=== PATIENT | male | born 1980 | race Two or more races ===

== ENCOUNTER 2016-10-29 10:06 | Emergency (ER) | payer SELFPAY ==
[~2016-10-29 10:06] MED LIST: Aspirin PO; OMEP20TA63 PO; PANT40TA3 PO
--- NOTE | 2016-10-29 10:47 | PHYS DOC ---
Past Medical History Past Medical History: CAD Past Surgical History: Appendectomy Alcohol Use: Rarely Drug Use: None Adult General Chief Complaint Chief Complaint: ABDOMINAL PAIN HPI HPI Patient is a 35 year old male presents to the emergency department with a history of nonproductive cough for the last few days. Patient states he felt a pop at the umbilicus. Patient states he has a hard area and tenderness. States he has had chills, unsure of fever. Patient denies nausea and vomiting, denies diarrhea and constipation. Review of Systems Review of Systems Constitutional: Denies fever or chills [] Eyes: Denies change in visual acuity, redness, or eye pain [] HENT: Denies nasal congestion or sore throat [] Respiratory: Denies cough or shortness of breath [] Cardiovascular: No additional information not addressed in HPI [] GI: umbilicus pain, denies nausea, vomiting, bloody stools or diarrhea [] : Denies dysuria or hematuria [] Musculoskeletal: Denies back pain or joint pain [] Integument: Denies rash or skin lesions [] Neurologic: Denies headache, focal weakness or sensory changes [] Endocrine: Denies polyuria or polydipsia [] Current Medications Current Medications Current Medications Medications (Trade) Dose Ordered Sig/Katherin Start Time Stop Time Status Last Admin Dose Admin Fentanyl Citrate (Fentanyl 2ml Vial) 50 mcg PRN Q15MIN PRN 10/29/16 11:30 10/30/16 11:29 10/29/16 11:56 50 MCG Info (Do NOT chart on this entry -- for MONITORING) 1 each PRN DAILY PRN 10/29/16 11:15 10/31/16 11:14 Iohexol (Omnipaque 240 Mg/ml) 50 ml 1X ONCE 10/29/16 11:15 10/29/16 11:16 DC 10/29/16 11:15 50 ML Iohexol (Omnipaque 300 Mg/ml) 75 ml 1X ONCE 10/29/16 11:15 10/29/16 11:16 DC 10/29/16 12:32 75 ML Ondansetron HCl (Zofran) 4 mg 1X ONCE 10/29/16 11:30 10/29/16 11:31 DC 10/29/16 11:30 4 MG Allergies Allergies Allergies Coded Allergies Type Severity Reaction Last Updated Verified No Known Drug Allergies 04/19/15 No Physical Exam Physical Exam Constitutional: Well developed, well nourished, no acute distress, non-toxic appearance. [] HENT: Normocephalic, atraumatic, bilateral external ears normal, oropharynx moist, no oral exudates, nose normal. [] Eyes: PERRLA, EOMI, conjunctiva normal, no discharge. [] Neck: Normal range of motion, no tenderness, supple, no stridor. [] Cardiovascular:Heart rate regular rhythm, no murmur [] Lungs & Thorax: Bilateral breath sounds clear to auscultation [] Abdomen: Bowel sounds hypoactive, soft, umbilicus tenderness, knot noted to the 12' O clock area, no masses, no pulsatile masses. [] Skin: Warm, dry, no erythema, no rash. [] Back: No tenderness Extremities: No tenderness, no cyanosis, no clubbing, ROM intact, no edema. [] Neurologic: Alert and oriented X 3, normal motor function, normal sensory function, no focal deficits noted. [] Psychologic: Affect normal, judgement normal, mood normal. [] Current Patient Data Vital Signs Vital Signs Date Time Temp Pulse Resp B/P (MAP) Pulse Ox O2 Delivery O2 Flow Rate FiO2 10/29/16 12:55 88 16 145/78 (100) 95 Room Air 10/29/16 10:25 98.2 98.2 Lab Values Laboratory Tests Test 10/29/16 10:45 White Blood Count 13.2 x10^3/uL (4.0-11.0) H Red Blood Count 4.59 x10^6/uL (4.30-5.70) Hemoglobin 14.0 g/dL (13.0-17.5) Hematocrit 41.4 % (39.0-53.0) Mean Corpuscular Volume 90 fL (79-100) Mean Corpuscular Hemoglobin 31 pg (25-35) Mean Corpuscular Hemoglobin Concent 34 g/dL (31-37) Red Cell Distribution Width 14.0 % (11.5-14.5) Platelet Count 286 x10^3/uL (140-400) Neutrophils (%) (Auto) 76 % (31-73) H Lymphocytes (%) (Auto) 16 % (24-48) L Monocytes (%) (Auto) 7 % (0-9) Eosinophils (%) (Auto) 2 % (0-3) Basophils (%) (Auto) 0 % (0-3) Neutrophils # (Auto) 10.0 x10^3uL (1.8-7.7) H Lymphocytes # (Auto) 2.0 x10^3/uL (1.0-4.8) Monocytes # (Auto) 0.9 x10^3/uL (0.0-1.1) Eosinophils # (Auto) 0.2 x10^3/uL (0.0-0.7) Basophils # (Auto) 0.1 x10^3/uL (0.0-0.2) Sodium Level 138 mmol/L (136-145) Potassium Level 4.2 mmol/L (3.5-5.1) Chloride Level 100 mmol/L (98-107) Carbon Dioxide Level 31 mmol/L (21-32) Anion Gap 7 (6-14) Blood Urea Nitrogen 12 mg/dL (8-26) Creatinine 0.8 mg/dL (0.7-1.3) Estimated GFR (Cockcroft-Gault) 111.3 BUN/Creatinine Ratio 15 (6-20) Glucose Level 128 mg/dL (70-99) H Calcium Level 8.9 mg/dL (8.5-10.1) Total Bilirubin 0.4 mg/dL (0.2-1.0) Aspartate Amino Transferase (AST) 24 U/L (15-37) Alanine Aminotransferase (ALT) 36 U/L (16-63) Alkaline Phosphatase 118 U/L (46-116) H Total Protein 8.1 g/dL (6.4-8.2) Albumin 3.0 g/dL (3.4-5.0) L Albumin/Globulin Ratio 0.6 (1.0-1.7) L Laboratory Tests 10/29/16 10:45 Laboratory Tests 10/29/16 10:45 EKG EKG [] Radiology/Procedures Radiology/Procedures [][facility] [address] [place], [place] [id number] IMAGING REPORT Signed PATIENT: BONITA NOVA ACCOUNT: [id number] : 1980 LOCATION: ER AGE: 35 SEX: M EXAM STATUS: REG ER ORD. PHYSICIAN: JORGITO PRICE APRN REASON: cough and congestion PROCEDURE: CHEST PA & LATERAL ADDENDUM Addendum: Note is made of left retrocardiac opacity which is greater than expected for atelectasis. This is also likely due to pneumonic infiltrate. Follow-up to confirm complete resolution. DICTATED AND SIGNED BY: ANNETTE BOCANEGRA MD DATE: 10/29/16 1324 CC: JORGITO PRICE APRN; NO PCP ~ EXAM: Chest, single view. HISTORY: Congestion. COMPARISON: 05/08/2016. FINDINGS: A frontal view of the chest is obtained. There is bilateral perihilar and right suprahilar interstitial opacity. There is no consolidation, effusion or pneumothorax. The heart is normal in size. IMPRESSION: Bilateral perihilar and right suprahilar opacity suggesting interstitial infiltrate. DICTATED and SIGNED BY: ANNETTE BOCANEGRA MD DATE: 10/29/16 1101 CC: JORGITO PRICE APRN; NO PCP ~ [facility] [address] [place] [address] IMAGING REPORT Signed PATIENT: BONITA NOVA ACCOUNT: [id number] : 1980 LOCATION: ER AGE: 35 SEX: M EXAM STATUS: REG ER ORD. PHYSICIAN: JORGITO PRICE APRN REASON: knot at the umbilicus PROCEDURE: CT ABD PELV W/ORAL&IV CONTRAST EXAM: Abdomen and pelvis CT with intravenous contrast. HISTORY: Umbilical lump. TECHNIQUE: Computed tomographic images of the abdomen and pelvis were obtained following the administration of 75 cc Omnipaque 300 intravenous contrast. Multiplanar reformatting was performed. COMPARISON: 03/17/2010. FINDINGS: Evaluation of the lower thorax demonstrates a partially consolidated left lower lobe infiltrate containing air bronchograms. There is no effusion or pneumothorax. The heart is normal in size. There is hepatomegaly and hepatic steatosis. No focal hepatic lesion is seen. The gallbladder, pancreas, spleen, adrenal glands and kidneys are unremarkable. The appendix is surgically absent. No abnormally thickened or dilated loop of bowel is seen. The bladder is unremarkable. There is no pathologically enlarged lymph node. There is a fat-containing umbilical hernia. The hernia sac measures 6.0 cm and the hernia defect measures 1.5 cm. There is stranding within the herniated fat and adjacent ventral intraperitoneal fat likely due to ischemia/infarction. There is no suspicious osseous lesion. IMPRESSION: 1. Small fat-containing umbilical hernia measuring 6.0 cm in maximum dimension and extending to a defect measuring 1.5 cm. There is stranding within the herniated fat and adjacent intraperitoneal fat likely due to component of fat ischemia/infarction. 2. Hepatomegaly and hepatic steatosis. 3. Left lower lobe consolidated pneumonia. Follow-up to confirm complete resolution and exclude an underlying lesion. PQRS Compliance Statement: One or more of the following individualized dose reduction techniques were utilized for this examination: 1. Automated exposure control 2. Adjustment of the mA and/or kV according to patient size 3. Use of iterative reconstruction technique DICTATED and SIGNED BY: ANNETTE BOCANEGRA MD DATE: 10/29/16 6219 CC: JORGITO PRICE APRN; NO PCP ~ Course & Med Decision Making Course & Med Decision Making Pertinent Labs and Imaging studies reviewed. (See chart for details) CT scan of the abdomen and pelvis shows an incarcerated/ischemic that hernia. Also shows left lower lobe pneumonia. Patient will be placed on antibiotics for pneumonia, he'll be provided with pain medication for the hernia. He'll be provided with the surgeon to follow-up with within the next week. Patient was provided with signs and symptoms to return back to emergency department. Patient was also instructed pain medication will cause drowsiness do not take any be alert and oriented. Patient will be discharged home in stable condition. [] Dragon Disclaimer Dragon Disclaimer This electronic medical record was generated, in whole or in part, using a voice recognition dictation system. Departure Departure Impression: Primary Impression: Pneumonia Additional Impression: Umbilical hernia Disposition: 01 HOME, SELF-CARE Condition: STABLE Referrals: NO PCP (PCP) BETO DIAS MD Patient Instructions: Hernia, [id number], Pneumonia, Adult, [id number] Additional Instructions: Activity as tolerated. Splint the abdomen when your coughing. Antibiotics as prescribed. Pain medication as prescribed this medication will cause drowsiness do not take if may be alert and oriented. Drink plenty of fluids. Tylenol or ibuprofen for fever chills or generalized body aches and discomfort. You may take cough medication [id number] to help with the cough. Follow-up with a surgeon within the week. Return back to emergency prior signs symptoms of become worse. Scripts Hydrocodone/Apap 5-325 (NORCO 5-325 TABLET) 1 Each Tablet 1 TAB PO PRN Q6HRS Y for PAIN, #15 TAB 0 Refills Prov: JORGITO PRICE APRN 10/29/16 Azithromycin (ZITHROMAX) 250 Mg Tablet 250 MG PO DAILY for ANTI-BIOTIC, #6 TAB 0 Refills Take 2 tablets today and then 1 tablet daily until gone. Prov: JORGITO PRICE APRN 10/29/16 Problem Qualifiers JORGITO PRICE APRN October 29, 2016 10:47
[2016-10-29 11:03] LABS: BASO # 0.1 x10^3/uL (0.0-0.2); BASO % 0 % (0-3); EOS % 2 % (0-3); HEMATOCRIT 41.4 % (39.0-53.0); LYMPH % 16 % (24-48); MEAN CORPUSCULAR HEMOGLOBIN 31 pg (25-35); MEAN CORPUSCULAR HGB CONC 34 g/dL (31-37); MEAN CORPUSCULAR VOLUME 90 fL (79-100); MONO % 7 % (0-9); NEUT % 76 % (31-73); PLATELET COUNT 286 x10^3/uL (140-400); RED BLOOD COUNT 4.59 x10^6/uL (4.30-5.70); WHITE BLOOD COUNT 13.2 x10^3/uL (4.0-11.0)
--- NOTE | 2016-10-29 11:05 | RAD ---
EXAM: Chest, single view. HISTORY: Congestion. COMPARISON: 05/08/2016. FINDINGS: A frontal view of the chest is obtained. There is bilateral perihilar and right suprahilar interstitial opacity. There is no consolidation, effusion or pneumothorax. The heart is normal in size. IMPRESSION: Bilateral perihilar and right suprahilar opacity suggesting interstitial infiltrate.
[2016-10-29 11:09] LABS: CALCIUM 8.9 mg/dL (8.5-10.1); CREATININE 0.8 mg/dL (0.7-1.3); GFR 111.3; POTASSIUM 4.2 mmol/L (3.5-5.1)
[2016-10-29] MEDS ORDERED: IOHEXOL 240 MG/ML 50ML VIAL. PO ONE (11:15)
[2016-10-29] MEDS ORDERED: CONTRAST GIVEN MC PRN (11:15)
[2016-10-29] MEDS ORDERED: IOHEXOL 300 MG/ML 75 ML VIAL IV ONE (11:15)
[2016-10-29 11:16] LABS: ALBUMIN/GLOBULIN RATIO 0.6 (1.0-1.7); TOTAL BILIRUBIN 0.4 mg/dL (0.2-1.0); TOTAL PROTEIN 8.1 g/dL (6.4-8.2)
[2016-10-29] MEDS ORDERED: fentaNYL PF VIAL 100 MCG/2 ML VIAL IV PRN (11:30)
[2016-10-29] MEDS ORDERED: ONDANSETRON PF 4 MG/2 ML VIAL. IV ONE (11:30)
--- NOTE | 2016-10-29 13:26 | RAD ---
EXAM: Abdomen and pelvis CT with intravenous contrast. HISTORY: Umbilical lump. TECHNIQUE: Computed tomographic images of the abdomen and pelvis were obtained following the administration of 75 cc Omnipaque 300 intravenous contrast. Multiplanar reformatting was performed. COMPARISON: 03/17/2010. FINDINGS: Evaluation of the lower thorax demonstrates a partially consolidated left lower lobe infiltrate containing air bronchograms. There is no effusion or pneumothorax. The heart is normal in size. There is hepatomegaly and hepatic steatosis. No focal hepatic lesion is seen. The gallbladder, pancreas, spleen, adrenal glands and kidneys are unremarkable. The appendix is surgically absent. No abnormally thickened or dilated loop of bowel is seen. The bladder is unremarkable. There is no pathologically enlarged lymph node. There is a fat-containing umbilical hernia. The hernia sac measures 6.0 cm and the hernia defect measures 1.5 cm. There is stranding within the herniated fat and adjacent ventral intraperitoneal fat likely due to ischemia/infarction. There is no suspicious osseous lesion. IMPRESSION: 1. Small fat-containing umbilical hernia measuring 6.0 cm in maximum dimension and extending to a defect measuring 1.5 cm. There is stranding within the herniated fat and adjacent intraperitoneal fat likely due to component of fat ischemia/infarction. 2. Hepatomegaly and hepatic steatosis. 3. Left lower lobe consolidated pneumonia. Follow-up to confirm complete resolution and exclude an underlying lesion. PQRS Compliance Statement: One or more of the following individualized dose reduction techniques were utilized for this examination: 1. Automated exposure control 2. Adjustment of the mA and/or kV according to patient size 3. Use of iterative reconstruction technique
[2016-10-29 13:55] VITALS: BP 137/67
[2016-10-29] MEDS ORDERED: AZIT250T PO (13:57)
[2016-10-29] MEDS ORDERED: HYDR-971 PO (13:57)
== END 2016-10-29 14:05 | disposition home or self-care (01) ==
LOC: ER 10:06
DX: J18.9 Pneumonia, unspecified organism (principal); K42.9 Umbilical hernia without obstruction or gangrene; I25.10 Atherosclerotic heart disease of native coronary artery without angina pectoris; Z90.49 Acquired absence of other specified parts of digestive tract
CPT/HCPCS: 36415; 71020; 74177; 80053; 85027; 96374; 96375; 99285; J2405; J3010; Q9966; Q9967

== ENCOUNTER 2017-07-28 13:25 | Emergency (ER) | payer SELFPAY ==
[2017-07-28] MEDS: HYDROcodone/APAP 5/325MG 1 TAB TABLET PO ×2 (13:53)
[2017-07-28] MEDS: NAPROXEN 500 MG TABLET PO ×2 (13:53)
[2017-07-28] MEDS: MORPHINE SULFATE 10 MG/ML VIAL. IM ×2 (15:04)
[2017-07-28] MEDS ORDERED: MORPHINE SULFATE 10 MG/ML VIAL. IM ×2 (15:30)
== END 2017-07-28 15:23 | disposition home or self-care (01) ==
LOC: ER 13:25
DX: S83.92XA Sprain of unspecified site of left knee, initial encounter (principal); I25.10 Atherosclerotic heart disease of native coronary artery without angina pectoris; W00.0XXA Fall on same level due to ice and snow, initial encounter; Y93.89 Activity, other specified; Y92.89 Other specified places as the place of occurrence of the external cause; Y99.8 Other external cause status
CPT/HCPCS: 73562; 96372; 99284-25; J2270

== ENCOUNTER 2018-07-19 13:03 | Emergency (ER) | payer SELFPAY ==
[~2018-07-19] VITALS: Ht 165.1 cm; Wt 172.4 kg
[~2018-07-19 13:03] MED LIST changes: +AZIT250T PO; +HYDR-3164 PO
[2018-07-19 13:20] VITALS: BP 143/67
[2018-07-19] MEDS ORDERED: DEXAMETHASONE SOD PHOS 20 MG/5 ML VIAL. IM ONE (13:45)
[2018-07-19] MEDS ORDERED: methylPREDNISolone SOD SUCC PF 125 MG/2 ML VIAL. IV ONE (13:45)
[2018-07-19] MEDS ORDERED: PRED50TA PO (14:11)
[2018-07-19] MEDS ORDERED: AMOX875T PO (14:11)
--- NOTE | 2018-07-19 14:11 | PHYS DOC ---
Past Medical History Past Medical History: CAD Additional Past Medical Histor: Morbid Obesity (JAN RIGGS APRN) Past Surgical History: Appendectomy (JAN RIGGS APRN) Alcohol Use: Rarely Drug Use: None (JAN RIGGS APRN) Adult General Chief Complaint Chief Complaint: SORE THROAT HPI HPI Patient is a 37 year old male with history of coronary artery disease presenting today complaining of sore throat for one week. Patient denies any fever. Patient denies any difficulty swallowing though he states it's painful. (JAN RIGGS APRN) Review of Systems Review of Systems Constitutional: Denies fever or chills [] Eyes: Denies change in visual acuity, redness, or eye pain [] HENT: Reports sore throat. Denies nasal congestion Respiratory: Denies cough or shortness of breath [] Cardiovascular: No additional information not addressed in HPI [] GI: Denies abdominal pain, nausea, vomiting, bloody stools or diarrhea [] : Denies dysuria or hematuria [] Musculoskeletal: Denies back pain or joint pain [] Integument: Denies rash or skin lesions [] Neurologic: Denies headache, focal weakness or sensory changes [] All other systems were reviewed and found to be within normal limits, except as documented in this note. (JAN RIGGS APRN) Current Medications Current Medications Current Medications Medications (Trade) Dose Ordered Sig/Katherin Start Time Stop Time Status Last Admin Dose Admin Dexamethasone Sodium Phosphate (Decadron) 10 mg 1X ONCE 07/19/18 13:45 07/19/18 13:49 DC 07/19/18 13:45 10 MG Methylprednisolone Sodium Succinate (SOLU-Medrol 125MG VIAL) 125 mg 1X ONCE 07/19/18 13:45 07/19/18 13:46 DC (AZUCENA MELENDEZ MD) Allergies Allergies Allergies Coded Allergies Type Severity Reaction Last Updated Verified No Known Drug Allergies 04/19/15 No (AZUCENA MELENDEZ MD) Physical Exam Physical Exam Constitutional: Well developed, well nourished, no acute distress, non-toxic appearance. [] HENT: Normocephalic, atraumatic, bilateral external ears normal, oropharynx moist, no oral exudates, nose normal. [] +3 tonsils with mild erythema no exudate, midline uvula. +2 anterior cervical adenopathy Eyes: PERRLA, EOMI, conjunctiva normal, no discharge. [] Neck: Normal range of motion, no tenderness, supple, no stridor. [] Cardiovascular:Heart rate regular rhythm, no murmur [] Lungs & Thorax: Bilateral breath sounds clear to auscultation [] Abdomen: Bowel sounds normal, soft, no tenderness, no masses, no pulsatile masses. [] Skin: Warm, dry, no erythema, no rash. [] Back: No tenderness, no CVA tenderness. [] Extremities: No tenderness, no cyanosis, no clubbing, ROM intact, no edema. [] Neurologic: Alert and oriented X 3, normal motor function, normal sensory function, no focal deficits noted. [] Psychologic: Affect normal, judgement normal, mood normal. [] (JAN RIGGS APRN) Current Patient Data Vital Signs Vital Signs Date Time Temp Pulse Resp B/P (MAP) Pulse Ox O2 Delivery O2 Flow Rate FiO2 07/19/18 13:20 98.2 90 18 143/67 (92) 97 Room Air 98.2 (AZUCENA MELENDEZ MD) Lab Values Laboratory Tests Test 07/19/18 13:18 Group A Streptococcus Rapid Positive (NEGATIVE) (AZUCENA MELENDEZ MD) EKG EKG [] (JAN RIGGS APRN) Radiology/Procedures Radiology/Procedures [] (JAN RIGGS APRN) Course & Med Decision Making Course & Med Decision Making Pertinent Labs and Imaging studies reviewed. (See chart for details) This is a 37-year-old male patient presenting to the ED today with sore throat for one week. Positive rapid strep. Patient has +3 tonsils. Was given Decadron IM in the ED. Currently swallowing with no difficulties. Discharged with amoxicillin for 10 days and prednisone. Saltwater gargles recommended. Instructed to return to the ED at any point symptoms worsen. Follow-up with his own PCP in one week (JAN RIGGS APRN) Course & Med Decision Making Staff Physician Addendum: I was working in the ER during the course of this patient's visit. I was available for consultation as needed, but I was not directly involved in the care of this patient. (AZUCENA MELENDEZ MD) Dragon Disclaimer Dragon Disclaimer This electronic medical record was generated, in whole or in part, using a voice recognition dictation system. (JAN RIGGS APRN) Departure Departure Impression: Primary Impression: Acute streptococcal pharyngitis Disposition: 01 HOME, SELF-CARE Condition: STABLE Referrals: NO PCP (PCP) Follow up with your doctor in 1 week Patient Instructions: Strep Infections Additional Instructions: You were evaluated in the emergency room and noted to have strep infection. We put you on antibiotics and prednisone, take them as prescribed. Use saltwater gargles as needed for sore throat. Take Tylenol/Motrin as needed for pain or fever. Follow-up with your doctor next week, come back to the ED at any point symptoms worsen. Scripts Prednisone (PREDNISONE) 50 Mg Tablet 1 TAB PO DAILY, #5 TAB Prov: JAN RIGGS APRN 07/19/18 Amoxicillin (AMOXICILLIN) 875 Mg Tablet 1 TAB PO BID, #20 TAB Prov: JAN RIGGS APRN 07/19/18 JAN RIGGS APRN Jul 19, 2018 14:11 AZUCENA MELENDEZ MD Jul 19, 2018 17:28
== END 2018-07-19 14:29 | disposition home or self-care (01) ==
LOC: ER 13:03
DX: J02.0 Streptococcal pharyngitis (principal); B95.5 Unspecified streptococcus as the cause of diseases classified elsewhere; I25.10 Atherosclerotic heart disease of native coronary artery without angina pectoris; E66.01 Morbid (severe) obesity due to excess calories; Z68.44 Body mass index [BMI] 60.0-69.9, adult
CPT/HCPCS: 87880; 96372; 99284; J1100

== ENCOUNTER 2018-08-27 17:30 | Emergency (ER) | payer SELFPAY ==
[~2018-08-27] VITALS: Ht 165.1 cm; Wt 172.4 kg
[~2018-08-27 17:30] MED LIST changes: +AMOX875T PO; +PRED50TA PO
[2018-08-27 18:16] VITALS: BP 200/112
[2018-08-27] MEDS ORDERED: AMOX500C PO (18:20)
[2018-08-27] MEDS ORDERED: HYDR-2761 PO (18:20)
--- NOTE | 2018-08-27 18:25 | PHYS DOC ---
Past Medical History Past Medical History: CAD Additional Past Medical Histor: Morbid Obesity Past Surgical History: Appendectomy Alcohol Use: Rarely Drug Use: None Adult General Chief Complaint Chief Complaint: EARACHE/EAR PAIN HPI HPI Patient is a 37 year old male who presents with about this morning with right ear pain. Patient rates his pain is now 10. Patient states that he's taken ibuprofen and Tylenol today. Patient states that the ear is popping. Patient denies recent illness, fever, nausea, vomiting, diarrhea, headache, visual changes, dental pain or dental caries. Review of Systems Review of Systems Constitutional: Denies fever or chills [] Eyes: Denies change in visual acuity, redness, or eye pain [] HENT: Denies nasal congestion or sore throat. Right ear pain [] Respiratory: Denies cough or shortness of breath [] Cardiovascular: No additional information not addressed in HPI [] GI: Denies abdominal pain, nausea, vomiting, bloody stools or diarrhea [] : Denies dysuria or hematuria [] Musculoskeletal: Denies back pain or joint pain [] Integument: Denies rash or skin lesions [] Neurologic: Denies headache, focal weakness or sensory changes [] All other systems were reviewed and found to be within normal limits, except as documented in this note. Allergies Allergies Allergies Coded Allergies Type Severity Reaction Last Updated Verified No Known Drug Allergies 04/19/15 No Physical Exam Physical Exam Constitutional: Well developed, well nourished, no acute distress, non-toxic appearance. [] HENT: Normocephalic, atraumatic, bilateral external ears normal, oropharynx moist, no oral exudates, nose normal. Right ear tympanic boggy and slightly reddened[] Eyes: PERRLA, EOMI, conjunctiva normal, no discharge. [] Neck: Normal range of motion, no tenderness, supple, no stridor. [] Cardiovascular:Heart rate regular rhythm, no murmur [] Lungs & Thorax: Bilateral breath sounds clear to auscultation [] Abdomen: Bowel sounds normal, soft, no tenderness, no masses, no pulsatile masses. [] Skin: Warm, dry, no erythema, no rash. [] Back: No tenderness, no CVA tenderness. [] Extremities: No tenderness, no cyanosis, no clubbing, ROM intact, no edema. [] Neurologic: Alert and oriented X 3, normal motor function, normal sensory function, no focal deficits noted. [] Psychologic: Affect normal, judgement normal, mood normal. [] EKG EKG [] Radiology/Procedures Radiology/Procedures [] Course & Med Decision Making Course & Med Decision Making Patient is a 37 year old male who presents with about this morning with right ear pain. Patient rates his pain is now 10. Patient states that he's taken ibuprofen and Tylenol today. Patient states that the ear is popping. Patient denies recent illness, fever, nausea, vomiting, diarrhea, headache, visual changes, dental pain or dental caries. Ear tympanic is foggy in color and slightly reddened. Ear is tender with examination. Patient has no dental caries seen or dental pain. Patient will be treated with antibiotic patient is to follow-up with his primary care provider as soon as possible. Dragon Disclaimer Dragon Disclaimer This electronic medical record was generated, in whole or in part, using a voice recognition dictation system. Departure Departure Impression: Primary Impression: Otitis media Disposition: HOME, SELF-CARE Condition: STABLE Referrals: NO PCP (PCP) Patient Instructions: Otitis Media, Adult Additional Instructions: Follow-up with her primary care provider if needed. Take medications as prescribed. Scripts Hydrocodone Bit/Acetaminophen (HYDROCODONE-APAP 5-325 ) 1 Tab Tablet 1 TAB PO PRN Q6HRS PRN for PAIN, #10 TAB 0 Refills Prov: JORGITO TREVIÑO APRN 08/27/18 Amoxicillin (AMOXICILLIN) 500 Mg Capsule 1 CAP PO BID for 10 Days, #20 CAP Prov: JORGITO TREVIÑO APRN 08/27/18 Problem Qualifiers Primary Impression: Otitis media Otitis media type: unspecified Laterality: right Qualified Codes: H66.91 - Otitis media, unspecified, right ear JORGITO TREVIÑO APRN Aug 27, 2018 18:24
== END 2018-08-27 18:30 | disposition home or self-care (01) ==
LOC: ER 17:30
DX: H66.91 Otitis media, unspecified, right ear (principal); I25.10 Atherosclerotic heart disease of native coronary artery without angina pectoris; E66.01 Morbid (severe) obesity due to excess calories; Z68.44 Body mass index [BMI] 60.0-69.9, adult; Z90.89 Acquired absence of other organs
CPT/HCPCS: 99283